=== PATIENT | female | born 1990 | race African-American/Black ===

== ENCOUNTER 2018-06-17 09:11 | Emergency (ER) | payer BC ==
[~2018-06-17] VITALS: Ht 172.7 cm; Wt 63.5 kg
[2018-06-17 09:29] VITALS: BP 111/63
[2018-06-17 10:04] LABS: APPEARANCE,URINE CLEAR (CLEAR); BILIRUBIN,URINE NEGATIVE (NEGATIVE); BLOOD, URINE NEGATIVE (NEGATIVE); COLOR,URINE YELLOW (YELLOW); LEUKOCYTE ESTERASE ,URINE NEGATIVE (NEGATIVE); NITRITE, URINE NEGATIVE (NEGATIVE); PH,URINE 8.5 (5.0-9.0); UGLUCOSE NEGATIVE (NEGATIVE)
[2018-06-17 11:44] VITALS: BP 111/63
== END 2018-06-17 11:44 | disposition home or self-care (01) ==
LOC: MED 09:11
DX: N83.201 Unspecified ovarian cyst, right side (principal); D25.9 Leiomyoma of uterus, unspecified; Z88.0 Allergy status to penicillin; Z88.2 Allergy status to sulfonamides
CPT/HCPCS: 76856; 81003; 81025; 93976; 99284; Q0092

== ENCOUNTER 2018-12-15 09:57 | Emergency (ER) | payer BC ==
[~2018-12-15] VITALS: Ht 172.7 cm; Wt 60.8 kg
[2018-12-15 10:03] VITALS: BP 124/79
--- NOTE | 2018-12-15 10:13 | NUR ---
Patient ambulated to bed 5. RN evaluating patient at bedside.
--- NOTE | 2018-12-15 10:16 | NUR ---
PT BIB SELF TO THE ED WITH THE CHIEF C/O MID CHEST PAIN SINCE YESTERDAY. HAVE LITTLE TROUBLE BREATHING NOW. SATURATIING 100% IN ROOM AIR. NO SOB OR DIFFICULTY BREATHING NOTED AT THIS TIME. PT ALSO REPORTS SORE THROAT AND COUGH FOR A WEEK. TAKING COUGH DROP HALLS FOR 2-3 DAYS. LUNGS CLEAR. DENIES ANY RECENT FEVER. DENIES N/V/D. STATES PAIN OF 7/10 AT THIS TIME.
--- NOTE | 2018-12-15 11:03 | NUR ---
wafer fabrication technician at bedside.
--- NOTE | 2018-12-15 11:07 | NUR ---
PT BEING EVALUATED BY ER AT THIS TIME.
--- NOTE | 2018-12-15 11:11 | NUR ---
Dr. Mckeon evaluating patient at bedside.
[2018-12-15] MEDS ORDERED: NACL 0.9% 1,000 ML IV ONE (11:20)
[2018-12-15 11:33] LABS: APPEARANCE,URINE CLEAR (CLEAR); BILIRUBIN,URINE NEGATIVE (NEGATIVE); BLOOD, URINE NEGATIVE (NEGATIVE); COLOR,URINE YELLOW (YELLOW); LEUKOCYTE ESTERASE ,URINE NEGATIVE (NEGATIVE); NITRITE, URINE NEGATIVE (NEGATIVE); UGLUCOSE NEGATIVE (NEGATIVE)
[2018-12-15 11:48] LABS: BARBITURATE, URINE NEG. ng/ml (NEG <=200); BENZODIAZEPINE, URINE NEG. ng/mL (NEG <=200); CANNABINOID, URINE NEG. ng/mL (NEG <=50); COCAINE, URINE NEG. ng/mL (NEG <=300); OPIATE, URINE NEG. ng/mL (NEG <=2000); PHENCYCLIDINE SCREEN,URINE NEG. ng/mL (NEG <=25)
[2018-12-15 12:17] LABS: BASOPHILS % (AUTO) 0.1 % (0.0-2.0); EOSINOPHILS % (AUTO) 0.4 % (0.0-4.0); HEMATOCRIT 35.4 % (36-48); HEMOGLOBIN 11.8 g/dL (12.0-16.0); LYMPHOCYTES % (AUTO) 19.6 % (20.5-51.1); MEAN CORPUSCULAR HEMOGLOBIN 32 pg (27-31); MEAN CORPUSCULAR HGB CONC 33 g/dL (33-37); MEAN CORPUSCULAR VOLUME 95.8 fL (80-94); MONOCYTES # (AUTO) 0.7 K/uL (0.8-1.0); MONOCYTES % (AUTO) 12.4 % (1.7-9.3); NEUTROPHILS # (AUTO) 3.6 K/uL (1.8-7.7); NEUTROPHILS % (AUTO) 67.5 % (42.2-75.2); PLATELET COUNT (AUTO) 219 K/uL (140-450); RED CELL DISTRIBUTION WIDTH 13.6 % (11.6-13.7); WHITE BLOOD COUNT (AUTO) 5.3 K/uL (4.8-10.8)
[2018-12-15 12:33] LABS: ANION GAP 9.5 (8-16); CARBON DIOXIDE 25.5 mmol/L (21-32); CREATININE 0.6 mg/dL (0.6-1.3)
[2018-12-15 12:47] LABS: ALBUMIN 2.8 g/dL (3.4-5.0); TOTAL BILIRUBIN 0.2 mg/dL (0.0-1.0)
--- NOTE | 2018-12-15 13:16 | NUR ---
Dr. Mckeon re-evaluating patient at bedside.
[2018-12-15] MEDS ORDERED: LIDOCAINE VISCOUS 2% 20 ML UDC PO ONE (13:20)
[2018-12-15] MEDS ORDERED: FAMOTIDINE 20 MG/2 ML VIAL IVP ONE (13:20)
[2018-12-15] MEDS ORDERED: ALUMINUM HYD/MAG/SIMETHICONE 30 ML UDC PO ONE (13:20)
[2018-12-15 14:21] VITALS: BP 116/71
--- NOTE | 2018-12-15 14:21 | NUR ---
Patient discharged with v/s stable. Written and verbal after care instructions given and explained. Patient alert, oriented and verbalized understanding of instructions. Ambulatory with steady gait. All questions addressed prior to discharge. ID band removed. Patient advised to follow up with PMD. Rx of OMEPRAZOLE 40 MG given. Patient educated on indication of medication including possible reaction and side effects. Opportunity to ask questions provided and answered.
== END 2018-12-15 14:22 | disposition home or self-care (01) ==
LOC: MED 09:57
DX: R07.89 Other chest pain (principal); K29.70 Gastritis, unspecified, without bleeding; Z88.0 Allergy status to penicillin
CPT/HCPCS: 36415; 71045; 80053; 80305; 81003; 81025; 83690; 84484; 85025; 85379; 93005; 96361; 96374; 99284; J3490; J7030; Q0092

== ENCOUNTER 2019-03-23 06:18 | Emergency (ER) | payer BC, MEDICAID ==
[~2019-03-23] VITALS: Ht 172.7 cm; Wt 63.0 kg
[2019-03-23 06:28] VITALS: BP 107/73
--- NOTE | 2019-03-23 06:33 | NUR ---
PT TO BED 9 WITH STEADY GAIT
--- NOTE | 2019-03-23 06:35 | NUR ---
C/O DEPRESSION, MIGRAINE AND ANXIETY X 1 WEEK. PAIN /. DENIES SUICIDAL IDEATION. STATES SHE FEELS IF SHE IS HAVING HEART PALPATATIONS. VSS. PT AA0X4. BED IS DOWN, LOCKED, BED RAIL X 1, ERMD TO SEE PT. PMH- HYPERTHYROIDISM RX- ATENOLOL 50 MG, VITAMIN D, IBUPROFEN 600 MG, METHIMAZOLE 10 MG
--- NOTE | 2019-03-23 07:04 | NUR ---
DR WHEAT AT BEDSIDE
--- NOTE | 2019-03-23 07:17 | NUR ---
REPORT GIVEN TO LINDSAY/YARELI
--- NOTE | 2019-03-23 07:18 | NUR ---
Pt report given BY YARELI STEPHENS. Transfer of care at this time.
--- NOTE | 2019-03-23 07:41 | NUR ---
Patient discharged with v/s stable. Written and verbal after care instructions given and explained. Patient alert, oriented and verbalized understanding of instructions. Ambulatory with steady gait. All questions addressed prior to discharge. ID band removed. Patient advised to follow up with PMD. Rx of PROZAC given. Patient educated on indication of medication including possible reaction and side effects. Opportunity to ask questions provided and answered.
[2019-03-23 07:43] VITALS: BP 123/66
== END 2019-03-23 07:41 | disposition home or self-care (01) ==
LOC: MED 06:18
DX: F41.9 Anxiety disorder, unspecified (principal); F32.9 Major depressive disorder, single episode, unspecified; E05.90 Thyrotoxicosis, unspecified without thyrotoxic crisis or storm; Z76.0 Encounter for issue of repeat prescription; Z88.0 Allergy status to penicillin; Z87.42 Personal history of other diseases of the female genital tract
CPT/HCPCS: 99283

== ENCOUNTER 2019-06-03 06:29 | Emergency (ER) | payer MEDICAID ==
[~2019-06-03] VITALS: Ht 172.7 cm; Wt 63.0 kg
[2019-06-03 06:34] VITALS: BP 109/74
--- NOTE | 2019-06-03 06:34 | NUR ---
PT TAKEN TO BED 7
--- NOTE | 2019-06-03 06:34 | NUR ---
Dr. Houston examining patient.
--- NOTE | 2019-06-03 06:35 | NUR ---
29 Y/O FEMALE C/O GENERALIZED BODY ACHES AND ITCHING IN BILATERAL EARS X 1 WEEK. 10 ACHING FOCUSED ON CALVES, BACK, AND SHOULDER. PT STATES CHILLS, AFEBRILE AT THIS TIME. DENIES SOB/CHEST PAIN. PT STATES BODY ACHES BEGAN WHEN SHE CHANGED THYROID MEDICATION. RR EVEN AND UNLABORED, PT SITTING IN BED CALM AND PLEASANT, VSS. MEDHX: HYPERTHYROIDISM ALLERGIES: PENICILLIN, SULFA
--- NOTE | 2019-06-03 06:40 | NUR ---
PT AMBULATED TO RESTROOM WITH STEADY GAIT, URINE COLLECTED AT THIS TIME.
[2019-06-03] MEDS ORDERED: LIDOCAINE MPF 1% 5 ML ONE (06:48)
[2019-06-03] MEDS ORDERED: cefTRIAXone 1,000 MG VIAL ONE (06:48)
[2019-06-03] MEDS ORDERED: cefTRIAXone 1,000 MG in LIDOCAINE MPF 1% 2.1 ML IM ONE (06:50)
[2019-06-03] MEDS ORDERED: KETOROLAC 60 MG/2 ML VIAL IM ONE (06:50)
--- NOTE | 2019-06-03 06:58 | NUR ---
Note undone in EDM - 06/03/19 at 0700 by [email or web address] Patient discharged with v/s stable. Written and verbal after care instructions given and explained. Patient alert, oriented and verbalized understanding of instructions. Ambulatory with steady gait. All questions addressed prior to discharge. ID band removed. Patient advised to follow up with PMD. Rx of NAPROSYN AND MACROBID given. Patient educated on indication of medication including possible reaction and side effects. Opportunity to ask questions provided and answered.
[2019-06-03 07:00] VITALS: BP 109/74
--- NOTE | 2019-06-03 07:00 | NUR ---
Patient discharged with v/s stable. Written and verbal after care instructions given and explained. Patient alert, oriented and verbalized understanding of instructions. Ambulatory with steady gait. All questions addressed prior to discharge. ID band removed. Patient advised to follow up with PMD. Rx of NAPROSYN AND CIPRO given. Patient educated on indication of medication including possible reaction and side effects. Opportunity to ask questions provided and answered.
== END 2019-06-03 07:00 | disposition home or self-care (01) ==
LOC: MED 06:29
DX: N39.0 Urinary tract infection, site not specified (principal); E11.9 Type 2 diabetes mellitus without complications; Z88.0 Allergy status to penicillin
CPT/HCPCS: 81002; 81025; 96372; 99283; J0696; J1885; J2001

== ENCOUNTER 2019-06-09 19:16 | Emergency (ER) | payer MEDICAID, OTHER ==
[~2019-06-09] VITALS: Ht 172.7 cm; Wt 63.0 kg
[2019-06-09 19:18] VITALS: BP 119/60
--- NOTE | 2019-06-09 19:18 | NUR ---
TO BED # 04 AMBULATORY
--- NOTE | 2019-06-09 19:25 | NUR ---
29 Y/O FEMALE S/P HIT ON HER METAL BED HER LEFT LAST TOE WITH PAIN AND SWELLING, 10 MINUTES AGO. SKIN IS DRY AND INTACT. +ROM ON LEFT TOE AND FOOT. +2 PEDAL PULSES BILATERALLY. PAIN IS A 9/10 ACUTE, "NUMBING LIKE" PAIN. SHE IS UNABLE TO AMBULATE DUE TO THE PAIN. PATIENT STATES THAT SHE CURRENTLY HAS A UTI AND IS TAKING CIPRO. ERMD MADE AWARE OF STATUS. SIDE RAILSX1. VSS. WILL CONTINUE TO MONITOR. PMH: HYPERTHYROIDISM RX:NAPROXENL MAX OXIDE; LEVOTHYROXINE; ATENOLOL; FLUOXETINE ALLERGIES: SULFA; PCN
[2019-06-09] MEDS ORDERED: IBUPROFEN 600 MG TAB PO ONE (19:40)
--- NOTE | 2019-06-09 19:47 | NUR ---
xray at bedside.
--- NOTE | 2019-06-09 19:48 | NUR ---
X-RAY AT BEDSIDE.
--- NOTE | 2019-06-09 20:30 | NUR ---
EDUARD TAPPED PT'S FOURTH AND FIFTH TOE WITH RANDY WRAP THEN PLACED A ORTHO SHOE ON PT'S LEFT FOOT, PMSC'S WERE CHECKED BEFORE AND AFTER WITH NO INCIDENT.
[2019-06-09 20:37] VITALS: BP 119/60
--- NOTE | 2019-06-09 20:37 | NUR ---
Patient discharged with v/s stable. Written and verbal after care instructions given and explained. Patient alert, oriented and verbalized understanding of instructions. Wheel Chair Assisted with to car. All questions addressed prior to discharge. ID band removed. Patient advised to follow up with PMD. Rx of IBUPROFEN 600MG given. Patient educated on indication of medication including possible reaction and side effects. Opportunity to ask questions provided and answered.
== END 2019-06-09 20:37 | disposition home or self-care (01) ==
LOC: MED 19:16
DX: S92.512A Displaced fracture of proximal phalanx of left lesser toe(s), initial encounter for closed fracture (principal); E05.90 Thyrotoxicosis, unspecified without thyrotoxic crisis or storm; Z88.2 Allergy status to sulfonamides; Z88.0 Allergy status to penicillin; W22.8XXA Striking against or struck by other objects, initial encounter; Y92.89 Other specified places as the place of occurrence of the external cause; Y93.89 Activity, other specified; Y99.8 Other external cause status
CPT/HCPCS: 73660; 99283; Q0092

== ENCOUNTER 2019-06-27 21:44 | Emergency (ER) | payer OTHER ==
[~2019-06-27] VITALS: Ht 172.7 cm; Wt 63.2 kg
[2019-06-27 21:49] VITALS: BP 125/73
--- NOTE | 2019-06-27 21:52 | NUR ---
AMBULATES TO LOBBY WITH UPRIGHT STEADY GAIT. AWAITING AVAILABLE BED.
--- NOTE | 2019-06-27 23:49 | NUR ---
pt ambulated to bed 1
--- NOTE | 2019-06-27 23:49 | NUR ---
29 Y/O C/O OF BILATERAL EAR PAIN STARTING YESTERDAY. DENIES SORE THROAT, COUGH, RUNNY NOSE. PATIENT ABLE TO HEAR IN BOTH EARS. PAIN IS A 4/10. ERMD MADE AWARE OF STATUS. SIDE RAILS X1. WILL CONTINUE TO MONITOR. PMH-- HYPERTHYROID RX-- TYLENOL, NO RELIEF
[2019-06-28 00:55] VITALS: BP 125/73
--- NOTE | 2019-06-28 00:55 | NUR ---
Patient discharged with v/s stable. Written and verbal after care instructions given and explained. Patient alert, oriented and verbalized understanding of instructions. Ambulatory with steady gait. All questions addressed prior to discharge. ID band removed. Patient advised to follow up with PMD. Rx of DEBROX given. Patient educated on indication of medication including possible reaction and side effects. Opportunity to ask questions provided and answered. DISCHARGED BY DR. HIGGINS.
== END 2019-06-28 00:55 | disposition home or self-care (01) ==
LOC: MED 21:44
DX: H61.23 Impacted cerumen, bilateral (principal); E05.90 Thyrotoxicosis, unspecified without thyrotoxic crisis or storm; Z88.0 Allergy status to penicillin
CPT/HCPCS: 99282

== ENCOUNTER 2019-11-23 22:34 | Emergency (ER) | payer OTHER ==
[~2019-11-23] VITALS: Ht 172.7 cm; Wt 70.3 kg
--- NOTE | 2019-11-23 22:40 | NUR ---
Jenny mcclelland in [facility] - 11/23/19 at 2244 by [email or web address] PT CALLED NO ANSWER. CHECK RESTROOM AND OUTSIDE, NO RESPONSE
--- NOTE | 2019-11-23 22:43 | NUR ---
Jenny mcclelland in [facility] - 11/23/19 at 2244 by [email or web address] PT CALLED AGAIN NO RESPONSE IN WAITING ROOM, CHECK AND CALL THE RESTROOM, NO ANSWER.
[2019-11-23 23:01] VITALS: BP 119/72
--- NOTE | 2019-11-23 23:06 | NUR ---
PT TRIAGED AND SENT BACK TO LOBBY.
--- NOTE | 2019-11-24 00:40 | NUR ---
PT AMBULATED TO BED 7
--- NOTE | 2019-11-24 01:30 | NUR ---
29 YEAR OLD FEMALE COMPLAINS OF ABDOMINAL PAIN X YESTERDAY. PT STATES THAT SHE HAS NAUSEA, BUT NO VOMIT OR DIARRHEA. PT AOX4, BREATHING EVEN AND UNLABORED, SKIN WARM AND DRY. BED IN LOWEST POSITION, LOCKED, BED RAIL UPX1. PMH - GRAVES DISEASE ALLERGIES - PCN, SULFAS
--- NOTE | 2019-11-24 02:43 | NUR ---
PT ALERT AND AWAKE, BREATHING EVEN AND UNLABORED. ON PHONE WAITING FOR XRAY
--- NOTE | 2019-11-24 04:08 | NUR ---
PT ALERT AND AWAKE, BREATHING EVEN AND UNLABORED
[2019-11-24 04:25] VITALS: BP 103/67
--- NOTE | 2019-11-24 04:25 | NUR ---
Patient discharged with v/s stable. Written and verbal after care instructions about constipation given and explained. Patient alert, oriented and verbalized understanding of instructions. Ambulatory with steady gait. All questions addressed prior to discharge. ID band removed. Patient advised to follow up with PMD. Rx of Miralax powder, mineral oil, and motrin 800mg given. Patient educated on indication of medication including possible reaction and side effects. Opportunity to ask questions provided and answered.
== END 2019-11-24 04:25 | disposition home or self-care (01) ==
LOC: MED 22:34
DX: K59.00 Constipation, unspecified (principal); E07.9 Disorder of thyroid, unspecified; Z88.0 Allergy status to penicillin; Z88.2 Allergy status to sulfonamides
CPT/HCPCS: 74022; 81002; 81025; 99283

== ENCOUNTER 2020-11-16 08:51 | Emergency (ER) | payer BC, OTHER ==
[~2020-11-16] VITALS: Ht 172.7 cm; Wt 81.6 kg
[2020-11-16 08:54] VITALS: BP 108/66
--- NOTE | 2020-11-16 09:10 | NUR ---
30 Y/O FEMALE BIB SELF C/O ACHING NECK PAIN, FATIGUE, CHILLS, LACK OF APPETITE X3 DAYS, WITH COUGH. 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 DENIES FEVER OR HEADACHE. PMH:GRAVES DISEASE ALLERGIES: PCN AND SULFA
--- NOTE | 2020-11-16 09:11 | NUR ---
DR AYOUB AT BEDSIDE EXAMINING PT
[2020-11-16] MEDS ORDERED: ACETAMINOPHEN EXTRA STRENGTH 500 MG TAB PO ONE (09:20)
[2020-11-16] MEDS ORDERED: CYCLOBENZAPRINE 10 MG TAB PO ONE (09:20)
--- NOTE | 2020-11-16 09:24 | NUR ---
LAB AT BEDSIDE FOR BLOOD DRAW
[2020-11-16] MEDS ORDERED: CRUSHER, PILL MC ONE (09:34)
[2020-11-16 09:37] LABS: BASOPHILS % (AUTO) 1.2 % (0.0-2.0); EOSINOPHILS # (AUTO) 0.1 K/uL (0-0.4); EOSINOPHILS % (AUTO) 3.3 % (0.0-4.0); HEMATOCRIT 38.5 % (36-48); HEMOGLOBIN 13.1 g/dL (12.0-16.0); LYMPHOCYTES # (AUTO) 1.5 K/uL (2.5-16.5); LYMPHOCYTES % (AUTO) 35.1 % (20.5-51.1); MEAN CORPUSCULAR HEMOGLOBIN 34 pg (27-31); MEAN CORPUSCULAR HGB CONC 34 g/dL (33-37); MEAN CORPUSCULAR VOLUME 100.7 fL (80-94); MONOCYTES # (AUTO) 0.3 K/uL (0.8-1.0); MONOCYTES % (AUTO) 7.8 % (1.7-9.3); NEUTROPHILS # (AUTO) 2.2 K/uL (1.8-7.7); NEUTROPHILS % (AUTO) 52.6 % (42.2-75.2); PLATELET COUNT (AUTO) 247 K/uL (140-450); RED BLOOD CELL COUNT(AUTO) 3.83 MIL/uL (4.20-5.40); RED CELL DISTRIBUTION WIDTH 12.3 % (11.6-13.7); WHITE BLOOD COUNT (AUTO) 4.2 K/uL (4.8-10.8)
[2020-11-16 09:41] LABS: ANION GAP 12.2 (8-16); CARBON DIOXIDE 25.8 mmol/L (21-32); CREATININE 0.8 mg/dL (0.6-1.3)
[2020-11-16 09:57] LABS: ALBUMIN 3.4 g/dL (3.4-5.0); FREE T4 (FREE THYROXINE) 0.88 ng/dL (0.76-1.46); THYROID STIMULATING HORMONE 1.55 uIU/mL (0.34-3.74); TOTAL BILIRUBIN 0.3 mg/dL (0.0-1.0)
[2020-11-16] MEDS ORDERED: CYCL-654 PO (10:27)
[2020-11-16] MEDS ORDERED: IBUP-2213 PO (10:27)
[2020-11-16 10:36] VITALS: BP 108/66
--- NOTE | 2020-11-16 10:36 | NUR ---
Patient discharged with v/s stable. Written and verbal after care instructions given and explained. Patient alert, oriented and verbalized understanding of instructions. Ambulatory with steady gait. All questions addressed prior to discharge. ID band removed. Patient advised to follow up with PMD. Rx of CYCLOBENZAPRINE HCL, IBUPROFEN given. Patient educated on indication of medication including possible reaction and side effects. Opportunity to ask questions provided and answered.
== END 2020-11-16 10:36 | disposition home or self-care (01) ==
LOC: MED 08:51
DX: M79.10 Myalgia, unspecified site (principal); R53.81 Other malaise; Z79.899 Other long term (current) drug therapy; Z88.0 Allergy status to penicillin; E07.9 Disorder of thyroid, unspecified
CPT/HCPCS: 36415; 80053; 81002; 81025; 84439; 84443; 85025; 99283

== ENCOUNTER 2022-01-26 08:56 | Day surgery (SDC) | payer OTHER ==
[~2022-01-26] VITALS: Ht 172.7 cm; Wt 82.6 kg
[~2022-01-26 08:56] MED LIST: CYCL-654 PO; IBUP-2213 PO
[2022-01-26] MEDS ORDERED: LIDOCAINE 2% 100 MG/5 ML UJET TP ONE (11:50)
[2022-01-26] MEDS ORDERED: MIDAZOLAM 5 MG/5 ML VIAL ONE (11:50)
[2022-01-26] MEDS: fentaNYL citrate 0.05 MG/ML VIAL ONE ×5 (11:56→12:22)
== END 2022-01-26 13:05 | disposition home or self-care (01) ==
LOC: MDS 08:56 → MMU 08:57 → MDS 13:05
PROVIDERS: ATTEND Internal Medicine Gastroenterology
DX: R19.5 Other fecal abnormalities (principal); F32.9 Major depressive disorder, single episode, unspecified; E05.90 Thyrotoxicosis, unspecified without thyrotoxic crisis or storm; Z88.0 Allergy status to penicillin; Z88.1 Allergy status to other antibiotic agents; Z79.899 Other long term (current) drug therapy; Z20.822 Contact with and (suspected) exposure to COVID-19
CPT/HCPCS: 45378; 81025; 87426; J3010; J2250

== ENCOUNTER 2023-01-29 14:42 | Emergency (ER) | payer BC, OTHER ==
[~2023-01-29] VITALS: Ht 172.7 cm; Wt 83.6 kg
[2023-01-29 15:05] VITALS: BP 101/60; PULSE 94; RESP 18; TEMP 98; O2SAT 98
[2023-01-29] MEDS ORDERED: IBUP-2213 PO (16:12)
[2023-01-29] MEDS ORDERED: IBUPROFEN 600 MG TAB PO ONE (16:15)
== END 2023-01-29 17:29 | disposition home or self-care (01) ==
LOC: MED 14:42
DX: S63.592A Other specified sprain of left wrist, initial encounter (principal); W18.30XA Fall on same level, unspecified, initial encounter; Y93.51 Activity, roller skating (inline) and skateboarding; Y92.89 Other specified places as the place of occurrence of the external cause; Y99.8 Other external cause status
CPT/HCPCS: 73110; 99283

== ENCOUNTER 2023-12-06 03:59 | Emergency (ER) | payer OTHER ==
[~2023-12-06] VITALS: Ht 172.7 cm; Wt 86.2 kg
[~2023-12-06 03:59] MED LIST changes: -CYCL-654 PO
[2023-12-06 04:19] VITALS: BP 114/75; PULSE 91; RESP 16; TEMP 98.9; O2SAT 97
[2023-12-06 04:40] VITALS: BP 114/75; PULSE 91; RESP 16; TEMP 98.9
[2023-12-06 04:42] VITALS: O2SAT 97
[2023-12-06 05:23] LABS: FLU A ANTIGEN negative (NEGATIVE); FLU B ANTIGEN NEGATIVE (NEGATIVE)
[2023-12-06] MEDS ORDERED: AZIT250T4 PO (06:06)
[2023-12-06] MEDS ORDERED: ALBU0.0912 IH (06:10)
[2023-12-06] MEDS ORDERED: ROB PO (06:10)
== END 2023-12-06 06:22 | disposition home or self-care (01) ==
LOC: MED 03:59
DX: J18.9 Pneumonia, unspecified organism (principal); E03.9 Hypothyroidism, unspecified; Z20.822 Contact with and (suspected) exposure to COVID-19; Z79.1 Long term (current) use of non-steroidal anti-inflammatories (NSAID); Z79.2 Long term (current) use of antibiotics; Z79.899 Other long term (current) drug therapy; Z88.0 Allergy status to penicillin
CPT/HCPCS: 71045; 87426; 87804; 99284; Q0092